=== PATIENT | male | born 1955 | race Two or more races ===

== ENCOUNTER 2025-06-28 14:03 | Emergency (ER) | payer MEDICARE, MEDICAID, SELFPAY ==
[2025-06-28 15:48] VITALS: BP 146/83; PULSE 68; RESP 18; TEMP 36.8; O2SAT 98
--- NOTE | 2025-06-28 16:07 | PD.EDRME ---
Rapid Medical Screening Exam RME Arrival date/time: 06/28/25 14:03 Chief Complaint: General Adult/Misc Complain Vital signs: Vital Signs Temperature 98.3 F 06/28/25 15:48 Pulse Rate 68 06/28/25 15:48 Respiratory Rate 18 06/28/25 15:48 Blood Pressure 146/83 H 06/28/25 15:48 Pulse Oximetry (%) 98 06/28/25 15:48 Oxygen Delivery Method Room Air 06/28/25 15:48 Pulse ox is 98% room air Vital signs reviewed by provider: Yes RME Narrative: Patient tells me that he has a difficulty breathing and shortness of breath walking a very short distance. Denies kevan chest pain.
--- NOTE | 2025-06-28 16:08 | XR_ITS ---
Examination: PA lateral chest 2 views TECHNIQUE: Upright PA lateral chest 2 views Date and time: 12/02/2024 1613 hours Comparison June 03, 2024 INDICATIONS: Chest pain shortness of breath today. FINDINGS: Poor inspiratory effort Subsegmental atelectasis at the lung bases Mild prominence left ventricle. No lobar pneumonia or pulmonary edema IMPRESSION: Poor inspiratory effort chest x-ray
--- NOTE | 2025-06-28 16:08 | EKG_ITS ---
[facility] Test Date: 2025-06-28 Pat Name: FRANCK BARBOUR Department: Room: - Gender: Male Distribution Sales Manager: : 1955 Requested By: Wilfred Mattson Order Number: [id number] Reading MD: Wilfred Mattson Measurements Intervals [place] Rate: 73 P: 0 NE: 175 QRS: -31 QRSD: 102 T: -14 QT: 387 QTc: 427 Interpretive Statements SINUS RHYTHM WITH OCCASIONAL VENTRICULAR PREMATURE COMPLEXES PATTERN CONSISTENT WITH PULMONARY DISEASE INFERIOR MYOCARDIAL INFARCTION , PROBABLY OLD [40+ ms Q WAVE AND/OR ST/T ABNORMALITY IN II/aVF] Compared to ECG 08/30/2021 09:02:23 Ventricular premature complex(es) now present Myocardial infarct finding now present Intraventricular conduction delay no longer present T-wave abnormality no longer present /store/S0/[id number]/[id number].pdf
[2025-06-28 16:49] LABS: Collection Type, Urine Clean Catch
[2025-06-28 16:54] LABS: Basophils # (Auto) 0.1 Thou/mm3 (0.0-0.2); Basophils % (Auto) 0 % (0-2.5); Eosinophils # (Auto) 0.1 Thou/mm3 (0.0-0.5); Eosinophils % (Auto) 1 % (0-10); Hematocrit 47.2 % (41.0-53.0); Hemoglobin 15.4 g/dL (13.5-16.0); Immature Granulocytes Auto 0.06 Thou/mm3 (0.00-0.00); Lymphocytes # (Auto) 1.7 Thou/mm3 (1.0-4.8); Lymphocytes % (Auto) 15 % (10-50); Mean Corpuscular HGB Conc 32.6 g/dl (31.0-37.0); Mean Corpuscular Hemoglobin 31.0 pg (25.0-35.0); Mean Corpuscular Volume 95 fL (80-100); Monocytes # (Auto) 0.8 Thou/mm3 (0.0-0.8); Monocytes % (Auto) 7 % (0-12); Neutrophils # (Auto) 8.9 Thou/mm3 (1.8-7.7); Neutrophils % (Auto) 77 % (37-80); Nucleated Red Blood Cell # 0.00 Thou/mm3 (0.00-0.00); Nucleated Red Blood Cell % 0 /100 WBC (0); Platelet Count 200 Thou/mm3 (140-440); RDW Standard Deviation 49.8 fL (35.1-43.9); Red Blood Count 4.96 Miln/mm3 (4.50-5.90); White Blood Count 11.7 Thou/mm3 (3.8-10.6)
[2025-06-28 16:56] LABS: Bilirubin,Urine Negative (Negative); Blood,Urine Negative (Negative); Clarity,Urine Clear (Clear/Hazy); Color,Urine Yellow (Lt Yel-Yel); Glucose, Urine Negative (Negative); Ketones,Urine Negative (Negative); Leukocyte Esterase,Urine Negative (Negative); Nitrite,Urine Negative (Negative); PH,Urine 5.5 (5.0-7.0); Protein,Urine 1+ (Neg - Trace); RBC,Urine 2 /hpf (0-3); Specific Gravity,Urine 1.031 (1.001-1.035); Squamous Epithelial Cell,Urine < 1 /hpf (0-5); Urobilinogen,Urine 2.0 mg/dL (0.0-1.0); WBC,Urine 3 /hpf (0-5)
[2025-06-28 17:02] LABS: Amphetamine/Methamp Scrn,U Negative (Negative); Barbiturate Screen,Urine Negative (Negative); Benzodiazepines Screen,Urine Negative (Negative); Benzoylecgonine Screen, Ur Negative (Negative); Fentanyl Screen,Urine Negative (Negative); Opiate Screen,Urine Negative (Negative); THC Screen,Urine Negative (Negative)
[2025-06-28 17:13] LABS: B-Type Natriuretic Peptide 68 pg/mL (0-100)
[2025-06-28 17:15] LABS: Alanine Aminotransferase 12 U/L (10-49); Albumin, Serum 4.3 gm/dL (3.4-4.8); Albumin/Globulin Ratio 1.8 (1.2-2.2); Alkaline Phosphatase 88 U/L (46-116); Anion Gap 8 (7-16); Aspartate Amino Transferase 21 U/L (0-34); BUN/Creatinine Ratio 11 Ratio (12-20); Bilirubin,Total 0.4 mg/dL (0.3-1.2); Blood Urea Nitrogen 20 mg/dL (9-23); Calcium 10.1 mg/dL (8.3-10.6); Calcium (Corrected) 10.1 mg/dL (8.5-10.1); Carbon Dioxide 31.0 mMol/L (20.0-31.0); Chloride 106 mMol/L (98-107); Creatinine (Component) 1.9 mg/dL (0.6-1.3); Globulin 2.4 gm/dL (2.3-3.5); Glucose 79 mg/dL (74-106); LDH (Lactate Dehydrogenase) 230 U/L (120-246); Magnesium 1.7 mg/dL (1.6-2.6); Osmolality,Calculated 290 (275-295); Potassium 4.5 mMol/L (3.4-5.1); Sodium 145 mMol/L (136-145); Total Protein 6.7 gm/dL (5.7-8.2); Troponin I < 0.020 ng/mL (0.0-0.045); eGFR 37 See Note
[2025-06-28 17:49] LABS: INR 1.0 (0.9-1.3); Partial Thromboplastin Time 27.9 Seconds (22.0-36.0); Prothrombin Time 10.8 Seconds (9.0-12.2)
--- NOTE | 2025-06-28 20:40 | PD.EDADULT ---
ED General RME/HPI General Chief complaint: General Adult/Misc Complain Stated complaint: NEEDS HERNIA CHECKED OUT BY DOCTOR Time Seen by Provider: 06/28/25 20:20 Arrival date/time: 06/28/25 14:03 CC: Shortness of breath and exertional dyspnea HPI ongoing for the past year but worse in the last 2 weeks denies chest pain fever cough chills does not smoke does not drink alcohol but drinks lots of Pepsi. 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 Hoffman 4 to 5 years ago. Patient is awake alert oriented nontoxic-appearing not in any acute distress. RME / HPI RME / HPI narrative: Patient tells me that he has a difficulty breathing and shortness of breath walking a very short distance. Denies kevan chest pain. Related Data Previous Rx's ?Medication ?Instructions ?Recorded albuterol sulfate 90 mcg/actuation 2 puff inhalation Q4H PRN 08/21/21 aerosol inhaler shortness of breath #8.5 grams furosemide 20 mg tablet (Lasix) 20 mg PO QAM #4 tabs 06/28/25 Allergies Allergy/AdvReac Type Severity Reaction Status Date / Time No Known Allergies Allergy Verified 06/28/25 14:06 Review of Systems Review of Systems Narrative Review of Systems: GEN: No fever, no chills, no weight loss EYES: No discharge, no visual changes, no pain HEENT: No ear pain, no congestion, no sore throat PULM: + shortness of breath, no cough, no congestion CV: No chest pain, no dyspnea on exertion, no palpitations GI: No nausea, no vomiting, no diarrhea, no pain, no constipation : No frequency, no urgency, no dysuria MUSC/SKEL: No joint pain, no back pain SKIN: No rash PSYCH: No hallucinations, no depression HEME/LYMPH: No easy bleeding or bruising tendencies NEURO: No weakness, no headache Past Medical History Past Medical History NEUROLOGIC: Negative Neurological Disorders, Cerebrovascular Accident, Transient Ischemic Attacks (TIA), Dementia, Alzheimer's Disease, Parkinson's Disease, Brain Tumor, Meningitis, Seizures, Epilepsy, Multiple Sclerosis, Cerebral Palsy, Amyotrophic Lateral Sclerosis (ALS/Vaishali Gehrig's), Guillain-[place] Syndrome, Spina Bifida, Paralysis, Peripheral Neuropathy, Hoffman's Palsy, Subdural Hematoma, Migraine, Head Trauma, Spinal Cord Injury or Traumatic Brain Injury CARDIAC: Positive Cardiac Disorders (?CHF) and Congestive Heart Failure; Negative Myocardial Infarction, Cardiac Arrhythmia, Atrial Fibrillation, Angina, Heart Murmur, Coronary Artery Disease, Atherosclerotic Heart Disease, Peripheral Vascular Disease, Hypercholesterolemia, Aneurysm, Congenital Heart Disease, Valvular Heart Disease, Rheumatic Fever, Cardiomyopathy, Edema, Pericarditis, Cellulitis, Deep Vein Thrombosis, Hypertension, Hypotension or Varicose Veins RESPIRATORY: Positive Chronic Obstructive Pulmonary Disease (COPD); Negative Asthma, Bronchitis, Emphysema, Pneumonia, Pulmonary Fibrosis, Cystic Fibrosis, Tuberculosis, Pulmonary Embolism, Pulmonary Edema or Sleep Apnea GASTROINTESTINAL: Negative Gastrointestinal Disorders, Hepatitis, Cirrhosis, Pancreatitis, Celiac Disease, Gall Bladder Disease, Gastrointestinal Bleed, Esophageal Varices, Daugherty's Esophagus, Colitis, Ulcerative Colitis, Diverticulitis, Diverticulosis, Ulcer, Colorectal Cancer, Irritable Bowel, Crohn's Disease, Obstructive Bowel, Hiatal Hernia, Hemorrhoids, Gastroesophageal Reflux Disease or Obesity GENITOURINARY: Negative Genitourinary Disorders, Renal Disease, Kidney Stones, Polycystic Kidney Disease, Neurogenic Bladder, Inguinal Hernia, Dialysis, Prostate Cancer or Benign Prostatic Hyperplasia REPRODUCTIVE: Negative Breast Cancer, Fibroids, Genital Herpes, Gonorrhea, Syphilis or Testicular Cancer MUSCULOSKELETAL: Negative Musculoskeletal Disorders, Muscular Dystrophy, Myasthenia Gravis, Marfan's Syndrome, Bone Cancer, Arthritis, Rheumatoid Arthritis, Osteoporosis, Degenerative Disk Disease, Gout, Scoliosis, Carpal Tunnel Syndrome, Fibromyalgia, Fractures, Degenerative Joint Disease, Osteomyelitis or Poliovirus ENT: Negative Cataracts, Glaucoma, Blind, Retinal Detachment, Macular Degeneration, Ear Infection, Deafness, Head Trauma or Eye Prosthesis ENDOCRINE: Positive Endocrine Disorders (?overactive thyroid s/p RAIA); Negative Diabetes Mellitus Type 1, Diabetes Mellitus Type 2, Hypoglycemia, Dry Prong's Syndrome, [place]'s Disease, Hyperthyroidism, Hypothyroidism, Parathyroid Disease, Pituitary Disease, Systemic Lupus Erythematosus, Syndrome of Inappropriate Antidiuretic Hormone (SIADH), Adrenal Disease or Graves' Disease HEMATOLOGIC: Negative Blood Disorders, Anemia, Leukemia, Hemophilia, Thalassemia, Sickle Cell Disease or Clotting Problems PSYCHO/SOCIAL: Negative Psychiatric Problems, Schizophrenia, Recreational Drug Use, Bipolar Disorder, Depression, Anxiety, Behavior Problems, Self-Mutilation, Attention Deficit Disorder, Attention Deficit Hyperactivity Disorder, Depression, Post Traumatic Stress Disorder or Eating Disorder OTHER HISTORY: Negative Hospitalization, Autoimmune Disease, Down Syndrome, Autism, Developmental Delay, Shingles, Falls, Blood Transfusions, Blood Transfusion Reaction, Anesthesia Reactions, Organ Transplant, Chemotherapy, Radiation Therapy, Hyperbaric Therapy, MRSA, VRSA, Vancomycin-Resistant Enterococci, Human Immunodeficiency Virus (HIV), Chicken Pox, Measles, Mumps, Rubella (Liberian Measles), Pertussis, Clostridium Difficile, Cancer, Breast Cancer, Cervical Cancer, Colorectal Cancer, Lung Cancer, Ovarian Cancer, Prostate Cancer or Testicular Cancer Surgical History SURGICAL: Negative Cardiac Surgery, Open Heart Surgery, Coronary Artery Bypass Graft, Valve Replacement, Vascular Surgery, Coronary Stent, Cardiac Catheterization, Pacemaker, Angiogram, Auto Implanted Cardiovert Defib, Carotid Endarterectomy, Endocrine Surgery, Thyroidectomy, Ear Surgery, Tympanostomy Tube, Eye Surgery, Nose Surgery, Oral Surgery, Tonsillectomy, Adenoidectomy, Cochlear Implant, Corneal Transplant, Throat Surgery, Abdominal Surgery, Tracheostomy, Gastric Bypass Surgery, Gastrostomy, Bowel Surgery, Nephrectomy, Transurethral Resection, Joint Replacement, Amputation, Arthroscopy, Neurologic Surgery, Brain Shunt, Mastectomy, Lumpectomy, Hysterectomy, Tubal Ligation, Section, Vasectomy or Organ Transplant Social History SMOKING STATUS: Former smoker OCCUPATION: unemployed. previously worked in security ED Exam Narrative Physical exam: [General: Obese not in any acute distress Head normocephalic HEENT: Within acceptable limits Neck is supple nontender Chest equal chest rise nontender to palpation Respiratory: Subtle end expiratory basilar crackles posterior left side greater than right. CV: Rate rhythm is regular no murmurs rubs or clicks Abdomen is distended secondary to body habitus soft nontender no masses positive bowel sounds all 4 quadrants Back: No CVA tenderness no spinous process tenderness from cervical spine thoracic and lumbar spine Skin: Intact no petechiae rash induration ulceration or crepitus Extremities: Moving all extremity against resistance cap refill less than 2 seconds neurosensory intact. No lower extremity edema Neuro: Awake alert oriented x3 Glascow coma 15 no focal deficits] Course Quality Measures none Orders Category Date Time Status EKG (ED ONLY) *Do not use* NOW Care 06/28/25 16:08 Completed EKG (ED Only) Stat Exams 06/28/25 16:08 Draft XR chest 2V Stat Exams 06/28/25 16:08 Completed B-Type Natriuretic Peptide Stat Lab 06/28/25 16:33 Completed CBC Stat Lab 06/28/25 16:33 Completed Comprehensive Metabolic Panel Stat Lab 06/28/25 16:33 Completed Drug Screen,Urine Stat Lab 06/28/25 16:47 Completed LDH (Lactate Dehydrogenase) Stat Lab 06/28/25 16:33 Completed Magnesium Stat Lab 06/28/25 16:33 Completed Partial Thromboplastin Time Stat Lab 06/28/25 16:33 Completed Prothrombin Time with INR Stat Lab 06/28/25 16:33 Completed Troponin I Stat Lab 06/28/25 16:33 Completed Urinalysis Stat Lab 06/28/25 16:43 Completed Vital Signs Vital signs: Vital Signs Temperature 98.3 F 06/28/25 15:48 Pulse Rate 68 06/28/25 15:48 Respiratory Rate 18 06/28/25 15:48 Blood Pressure 146/83 H 06/28/25 15:48 Pulse Oximetry (%) 98 06/28/25 15:48 Oxygen Delivery Method Room Air 06/28/25 15:48 Discharge Plan Plan Patient Disposition: HOME (Self Care) Patient condition on transfer: Stable Prescriptions/Referrals Prescriptions/Med Rec: New furosemide [Lasix] 20 mg tablet 20 mg PO QAM Qty: 4 0RF No Action albuterol sulfate 90 mcg/actuation HFA aerosol inhaler 2 puff INH Q4H MDD 6 PRN (Reason: shortness of breath) Qty: 8.5 0RF Referrals: Oleg Grullon MD [Primary Care Provider] - In 1 week Problem List Clinical Impression: Exertional dyspnea Patient/Caregiver Discharge Instructions Education Materials: ED Shortness of Breath (Dyspnea) Additional Instructions: Cut out all salt in your diet, take the medications as prescribed, follow-up with Dr. Ponce listed above if there is a worsening of symptoms return the emergency room for reevaluation. Print Language: Malaysian Stand Alone Forms: Nadege Award Info., Work/School Release, Patient Portal Info Letter PA/BACCARAT MANAGER Supervising Physician PA/BACCARAT MANAGER Supervising Physician: Ray Blanton ENP [facility] Clinical Information Provided by patient and family Medical Records Reviewed [facility] Meds/Rx Considered, not Ordered None Labs/Rad/Tests considered, not Ordered None EKG EKG Interpretation narrative: EKG performed at 1625 shows ventricular rate of 73 NC interval 175 QRS 102 QTc of 413 sinus rhythm with occasional PVC. No significant ST segment changes. Lab Interpretation Lab(s) interpretation(s): EKG shows no significant leukocytosis anemia thrombocytopenia Coags within acceptable limits CMP shows creatinine of 1.9 note: This is a worsening from May 2024 when it was 1.4. No other electrolyte imbalances renal impairment transaminitis or T. bili elevation Urine is 1+ protein no other acute finding suggestive of UTI. UDS is negative Chest x-ray is interpreted by me and read by radiology as poor inspiratory effort but no acute finding requires emergent intervention. Medication Administration(s) I suspect this patient has obesity, and family members say that he eats considerable amount of salt in his diet. This time we will ask him to cut out salt will give him several days of Lasix and have him follow-up with his PCP.
[2025-06-28 20:51] VITALS: RESP 18
== END 2025-06-28 20:52 | disposition home or self-care (01) ==
PROVIDERS: Physician Assistant; Emergency Provider Family Medicine; PCP Family Medicine
DX: R06.09 Other forms of dyspnea (principal)
CPT/HCPCS: 36415; 71046; 80053; 80307; 81001; 83615; 83735; 83880; 84484; 85025; 85610; 85730; 93005; 99284